=== PATIENT | female | born 1995 | race Caucasian/White ===

== ENCOUNTER 2017-10-09 01:06 | Emergency (ER) | payer OTHER ==
--- NOTE | 2017-10-09 01:13 | PDOC ---
History of Present Illness - General Chief Complaint: Constipation Stated Complaint: CONSTIPATED Time Seen by Provider: 10/09/17 01:13 History Source: Patient Exam Limitations: No Limitations - History of Present Illness Initial Comments: 10/09/17 01:13 This is 22-year-old female who comes in with her mother for evaluation of constipation. Patient said she has not had a bowel movement for 4 days. Patient has been taking narcotics for an arm fracture and said she had a very small bulla bowel movement on Friday but nothing since then. Patient is complaining of crampy abdominal pain. Patient denies any fever, chills, nausea, vomiting, diarrhea. PAST MEDICAL HISTORY: no significant history PAST SURGICAL HISTORY: no significant history FAMILY HISTORY: no pertinant history SOCIAL HISTORY: Pt lives with family and is employed. MEDICATIONS: reviewed ALLERGIES: As per nursing notes Review of Systems General: No fevers or chills, no weakness, no weight loss HEENT: No change in vision. No sore throat,. No ear pain CardioVascular: No chest pain or shortness of breath Respiratory:No cough, or wheezing. Gastrointestinal: no nausea, vomitting, diarrhea or constipation, No rectal bleeding Genitourinary: No dysuria, hematuria, or frequency Musculoskeletal: No joint or muscle pain or swelling Neurologic: No headache, vertigo, dizziness or loss of consciousness Psychiatric: nor depression Skin: No rashes or easy bruising Endocrine: no increased thirst or abnormal weight change Allergic: no skin or latex allergy All other systems reviewed and normal Exam: General: Well-nourished well-developed individual, no acute distress HEENT: Throat: Normal, tonsils normal, no erythema or exudate Neck: Supple, no meningeal signs, no lymphadenopathy Eyes::Pupils equal reactive and round, extraocular motion intact Abdomen: Soft, nondistended, normal bowel sounds, nontender to palpation diffusely Rectal: Rectal vault full of large amount of rock hard stool. Disimpacted large flow of rock hard stool manually. Extremities: Warm, dry, no cyanosis, clubbing, or edema Skin: No rashes Neuro: Alert and oriented x3, CN II - XII intact, nonfocal exam with normal strength, normal sensation, normal reflexes, normal gait, Psych: Normal mood and affect Assessment and plan: This is a 22-year-old female who has had no bowel movement 4 days. Patient is miserable with abdominal cramps. I disimpacted a large amount of stool in then patient was given warm soap suds enemas until she was able to further evacuate on her own another large volume of stool. Patient said she feels better and has less abdominal cramping. Patient given a bottle of mag citrate here and told to drink it in the morning. Patient told to also continue her laxatives and stool softeners until she has soft stools. Past History - Past Medical History Allergies/Adverse Reactions: Allergies Allergy/AdvReac Type Severity Reaction Status Date / Time codeine [Codeine] AdvReac Verified 10/31/14 20:59 MANGOES Allergy Intermediate Uncoded 10/20/11 09:56 Home Medications: Ambulatory Orders Nitrofurantoin Monohyd/M-Cryst [Macrobid -] 100 mg PO BID #5 capsule 10/31/14 Phenazopyridine HCl [Pyridium] 200 mg PO TID PRN #5 tablet 10/31/14 - Suicide/Smoking/Psychosocial Hx Smoking Status: No Smoking History: Never smoked Have you smoked in the past 12 months: No Number of Cigarettes Smoked Daily: 0 Hx Alcohol Use: Yes (OCCAS.) Substance Use Type: None *DC/Admit/Observation/Transfer Diagnosis at time of Disposition: Constipation due to pain medication - Discharge Dispostion Disposition: HOME Condition at time of disposition: Good Admit: No - Referrals - Patient Instructions Additional Instructions: You were given a bottle of mag citrate drink it tomorrow morning provided U will be able to be near a bathroom for the next 3-4 hours. The mag citrate may cause you to go to the bathroom several times within the next 3-4 hours after you drink it. Otherwise continue your stool softer and laxatives as well until you have soft bowel movements and are no longer constipated or bloated. If you ever need to take opioid narcotics in the future for pain make sure that you immediately start on stool softeners and laxatives so that this doesn't happen again. Return to the emergency department immediately with ANY new, persistent or worsening symptoms. Continue any medications as previously prescribed by your physician. You should follow up with your primary doctor as soon as possible regarding today's emergency department visit. . Please make sure your doctor reviews the results of your emergency evaluation. Thank you for coming to the Emergency Department today for your care. It was a pleasure to see you today. Please note that your evaluation is INCOMPLETE until you follow-up with your doctor. - Post Discharge Activity
[2017-10-09] MEDS ORDERED: MAGNESIUM CITRATE 300 ML BOTTLE PO ONE (01:46)
[2017-10-09 01:50] VITALS: BP 115/74; PULSE 96; TEMP 98.4; BMI 33.3
[2017-10-09] MEDS ORDERED: MAGNESIUM CITRATE 300 ML BOTTLE ONE (01:51)
== END 2017-10-09 01:52 | disposition home or self-care (01) ==
LOC: FER 01:06
DX: K59.03 Drug induced constipation (principal)
CPT/HCPCS: 99283-25

== ENCOUNTER 2018-10-27 19:56 | Emergency (ER) | payer OTHER ==
--- NOTE | 2018-10-27 20:01 | PDOC ---
History of Present Illness - General Chief Complaint: Injury Stated Complaint: TRIPPED INJURING LEFT ELBOW Time Seen by Provider: 10/27/18 20:01 History Source: Patient Exam Limitations: No Limitations - History of Present Illness Initial Comments: 10/27/18 20:14 This is a 23-year-old female who tripped over a curb 2 days ago fell landing on her right elbow. Patient took some Advil for the pain however she said his got progressively worse and radiates down to her hand as well as up to her shoulder. Patient is complaining of pain in the lateral portion of the elbow. Patient said pain is worse with pronation and supination. Patient denies any other injuries. Allergies: as per nursing notes Past Medical History: none Social history: Lives with family. No smoking. No alcohol. No illicit drugs. Surgical history: None General: No fevers or chills, no weakness, no weight loss HEENT: No change in vision. No sore throat,. No ear pain CardioVascular: no chest discomfort. No shortness of breath Respiratory:No cough, or wheezing. Gastrointestinal: no nausea, vomiting, diarrhea or constipation, No rectal bleeding Genitourinary: No dysuria, hematuria, or frequency Musculoskeletal: Right elbow pain as per history of present illness Neurologic: No headache, vertigo, dizziness or loss of consciousness Psychiatric: nor depression Skin: No rashes or easy bruising Endocrine: no increased thirst or abnormal weight change Allergic: no skin or latex allergy All other systems reviewed and normal GENERAL: The patient is awake, alert, and fully oriented, in no acute distress. HEAD: Normal with no signs of trauma. EYES: Pupils equal, round and reactive to light, extraocular movements intact, sclera anicteric, conjunctiva clear. EXTREMITIES: Right elbow, there is some mild tenderness on palpation of the NEUROLOGICAL: Normal speech, normal gait. PSYCH: Normal mood, normal affect. SKIN: Warm, Dry, normal turgor, no rashes or lesions noted. Assessment and plan: This is a 23-year-old female who fell onto her right elbow 2 days ago and now comes in complaining of pain. We will obtain x-ray of elbow, patient deferred test that she is on BCPs 10/27/18 20:36 X-ray negative for any acute pathology Patient given Jake wrap and discharged home will follow-up with her primary care doctor Past History - Past Medical History Allergies/Adverse Reactions: Allergies Allergy/AdvReac Type Severity Reaction Status Date / Time codeine [Codeine] AdvReac Verified 10/27/18 19:57 MANGOES Allergy Intermediate Uncoded 10/20/11 09:56 Home Medications: Ambulatory Orders NK [No Known Home Medication] 10/27/18 COPD: No - Immunization History Immunization Up to Date: Yes - Suicide/Smoking/Psychosocial Hx Smoking Status: No Smoking History: Never smoked Have you smoked in the past 12 months: No Number of Cigarettes Smoked Daily: 0 Hx Alcohol Use: Yes (OCCAS.) Drug/Substance Use Hx: No Substance Use Type: None *DC/Admit/Observation/Transfer Diagnosis at time of Disposition: Pain in right elbow - Discharge Dispostion Disposition: HOME Condition at time of disposition: Stable Decision to Admit order: No - Referrals - Patient Instructions Additional Instructions: Take Tylenol or Motrin as needed for the pain. Wear the Jake wrap for additional comfort and support. Return to the emergency department immediately with ANY new, persistent or worsening symptoms. Continue any medications as previously prescribed by your physician. You should follow up with your primary doctor as soon as possible regarding today's emergency department visit. . Please make sure your doctor reviews the results of your emergency evaluation. Thank you for coming to the Emergency Department today for your care. It was a pleasure to see you today. Please note that your evaluation is INCOMPLETE until you follow-up with your doctor. - Post Discharge Activity
[2018-10-27 20:05] VITALS: BP 125/87; PULSE 76; TEMP 98.4; BMI 30.4
== END 2018-10-27 20:55 | disposition home or self-care (01) ==
LOC: FER 19:56
DX: M25.521 Pain in right elbow (principal); W18.09XA Striking against other object with subsequent fall, initial encounter; Y93.89 Activity, other specified; Y92.410 Unspecified street and highway as the place of occurrence of the external cause
CPT/HCPCS: 73070-TC-RT-FY; 99281-25

== ENCOUNTER 2020-10-10 15:14 | Emergency (ER) | payer BC, OTHER ==
[2020-10-10 15:29] VITALS: BP 126/88; PULSE 92; TEMP 99.4; BMI 34.9
[2020-10-10] MEDS ORDERED: FAMOTIDINE 20 MG TABLET PO ONE (16:33)
[2020-10-10] MEDS ORDERED: FAMOTIDINE 20 MG TABLET ONE (16:45)
[2020-10-10] MEDS ORDERED: ACETAMINOPHEN 325 MG TABLET (FP) PO ONE (17:36)
[2020-10-10] MEDS ORDERED: ACETAMINOPHEN 325 MG TABLET (FP) ONE (17:43)
== END 2020-10-10 17:45 | disposition home or self-care (01) ==
LOC: FER 15:14
DX: R07.89 Other chest pain (principal)
CPT/HCPCS: 93005; 99284-25

== ENCOUNTER 2024-07-01 06:29 | Day surgery (SDC) | payer OTHER ==
[2024-06-25 13:38] VITALS: BMI 35.2
[2024-07-01] MEDS ORDERED: BUPIVACAINE HCL/EPINEPHRINE/PF 30 ML VIAL IJ ONE (07:19)
[2024-07-01] MEDS ORDERED: NITROGLYCERIN 2% OINTMENT - 1GM PACKET TD ONE (07:19)
[2024-07-01] MEDS ORDERED: PROPOFOL 20 ML ONE (07:25)
[2024-07-01] MEDS ORDERED: ROCURONIUM BROMIDE 50 MG/5 ML SYRINGE ONE ×2 (07:27→09:10)
[2024-07-01] MEDS ORDERED: MIDAZOLAM HCL 2 MG/2 ML SINGLE DOSE VIAL ONE (07:27)
[2024-07-01] MEDS: BUPIVACAINE 0.25% /EPI 1:200,000 10 ML VIAL NR ONE (08:52)
[2024-07-01] MEDS ORDERED: NEOSTIGMINE METHYLSULFATE 0.5 MG/1 ML - 10 ML MDV ONE (10:06)
[2024-07-01] MEDS ORDERED: GLYCOPYRROLATE 0.2 MG/1 ML VIAL ONE (10:06)
[2024-07-01] MEDS ORDERED: ACETAMINOPHEN INJECTION 100 ML ONE (11:13)
[2024-07-01] MEDS ORDERED: PROMETHAZINE HCL 25 MG/1 ML VIAL ONE (11:13)
[2024-07-01] MEDS: PROMETHAZINE HCL 25 MG/1 ML VIAL IVPB PRN (11:15)
[2024-07-01] MEDS ORDERED: SCOPOLAMINE HYDROBROMIDE 1 PATCH PATCH.TD72 ONE (11:17)
[2024-07-01] MEDS: ACETAMINOPHEN 1000 MG/100 ML BAG IVPB ONE (11:20)
[2024-07-01] MEDS ORDERED: oxyCODONE HCL 5 MG TABLET PO PRN (11:21)
[2024-07-01] MEDS ORDERED: ONDANSETRON 4 MG/2 ML VIAL IVPUSH PRN (11:21)
[2024-07-01] MEDS ORDERED: HYDROmorphone HCl 2 MG/ML VIAL IVPUSH PRN (11:24)
[2024-07-01] MEDS ORDERED: LACTATED RINGERS SOLUTION 1,000 ML IV SCH (11:30)
[2024-07-01] MEDS: SCOPOLAMINE HYDROBROMIDE 1 PATCH PATCH.TD72 TD SCH (11:31)
[2024-07-01] MEDS ORDERED: FENTANYL CITRATE/PF 50 MCG/ML VIAL ONE (11:41)
[2024-07-01 12:49] VITALS: RESP 18; TEMP 97.4
[2024-07-01] MEDS ORDERED: oxyCODONE HCL 5 MG TABLET ONE (13:48)
[2024-07-01] MEDS: oxyCODONE HCL 5 MG TABLET PO PRN (13:50)
[2024-07-01 15:52] VITALS: BP 112/60; PULSE 96
== END 2024-07-01 15:50 | disposition home or self-care (01) ==
LOC: FASU 06:29
PROVIDERS: ATTEND Plastic Surgery
PROC: 0HBV0ZZ Excision of Bilateral Breast, Open Approach (ICD-10-PCS; principal; 2024-07-01 08:52)
DX: N62 Hypertrophy of breast (principal)
CPT/HCPCS: 81025; 88305-TC; 94760; J0131